=== PATIENT | female | born 1950 | race Caucasian/White ===

== ENCOUNTER 2016-08-17 22:21 | Emergency (ER) | payer SELFPAY ==
[2016-08-18 01:01] LABS: BASOPHILS 0.2 %; BASOPHILS ABSOLUTE 0.01 10/3/uL (0.0-0.16); EOSINOPHILS 4.2 %; EOSINOPHILS ABSOLUTE 0.26 10/3/uL (0.0-0.53); ER CBC TAT 0 Hrs 04 MinS; HEMATOCRIT 33.3 % (36.0-48.0); HEMOGLOBIN 10.8 g/dL (12.0-16.0); MANUAL DIFF NO %; MEAN CORPUS HGB CONC 32.4 g/dL (32.0-36.0); MEAN CORPUSCULAR HEMOGLOB 27.6 pg (26.0-34.0); MEAN CORPUSCULAR VOLUME 84.9 fL (80-100); MEAN PLATELET VOLUME 9.7 fL (9.2-13.0); MONOCYTES ABSOLUTE 0.69 10/3/uL (0.21-1.20); NEUTROPHILS 60.6 %; NEUTROPHILS ABSOLUTE 3.79 10/3/uL (2.02-8.40); PLATELET COUNT 232 10/3/uL (150-400); RBC DISTRIBUTION WIDTH 15.2 % (12.0-16.0); RED CELL COUNT 3.92 10/6/uL (4.0-5.6); WHITE BLOOD CELLS 6.3 10/3/uL (4.5-10.5)
[2016-08-18 01:17] LABS: BUN (BLOOD UREA NITROGEN) 11 MG/DL (6-23); CHEST PAIN PROFILE TAT 0 Hrs 20 Mins; CHLORIDE, SERUM 109 MMOL/L (96-112); CO2 (CARBON DIOXIDE) 31 MMOL/L (24-34); CREATININE 0.85 MG/DL (0.55-1.02); GFR AFRICAN AMERICAN 83 ML/MIN (>=60); GFR NON AFRICAN AMERICAN 71 ML/MIN (>=60); GLUCOSE, SERUM 96 MG/DL (60-99); POTASSIUM, SERUM 3.3 MMOL/L (3.5-5.3); SODIUM, SERUM 144 MMOL/L (135-148); TROPONIN I <0.02 NG/ML (<0.05)
[2016-08-18 01:36] LABS: PARTIAL THROMBO TIME 29.3 SEC (22.5-37.2)
[2016-08-18 01:47] LABS: PROTIME (NOT ORD) 13.5 SEC (12.0-14.5)
== END 2016-08-18 01:45 | disposition home or self-care (01) ==
LOC: ER 22:21
PROVIDERS: Emergency Medicine
DX: R07.9 Chest pain, unspecified (principal); C19 Malignant neoplasm of rectosigmoid junction; Z88.0 Allergy status to penicillin
CPT/HCPCS: 71010; 80048; 83735; 84484; 85025; 85610; 85730; 93005; 99284